=== PATIENT | male | born 1935 | race Caucasian/White ===

== ENCOUNTER → 2021-04-19 15:31 | Outpatient (CLI) | payer MEDICARE, MEDICAID ==
[2021-04-19 16:51] LABS: BILIRUBIN NEGATIVE (NEGATIVE); KETONE NEGATIVE (NEGATIVE); NITRITE NEGATIVE (NEGATIVE); UROBILINOGEN NORMAL mg/dL (< 2)
[2021-04-19 21:09] LABS: BASOPHILS 1.2 % (0-2); HEMATOCRIT 45.6 % (42.0-54.0); HEMOGLOBIN 14.8 g/dL (13.5-17.5); LYMPHOCYTES 18.1 % (15-50); MCH 29.3 pg (26.0-34.0); MCHC 32.4 g/dL (31.0-37.0); MCV 90.5 fL (80.0-100.0); MEAN PLATELET VOLUME 8.9 fL (7.4-10.4); MONOCYTES 6.3 % (2-11); NEUTROPHILS 70.4 % (40-80); RBC 5.04 10x6/uL (4.20-6.10); RDW 13.9 % (11.5-14.5); WBC 12.9 10x3/uL (4.8-10.8)
[2021-04-19 21:17] LABS: PLATELET COUNT 474 10x3/uL (130-400)
[2021-04-19 21:21] LABS: ALBUMIN 3.8 g/dL (3.4-5.0); ANION GAP 16.1 mmol/L (8-16); BILIRUBIN - TOTAL 0.98 mg/dL (0.2-1.3); CARBON DIOXIDE 27.1 mmol/L (21.0-32.0); CREATININE - SERUM 1.3 mg/dL (0.6-1.3); POTASSIUM - SERUM 4.2 mmol/L (3.5-5.1); PROTEIN - SERUM 6.8 g/dL (6.4-8.2)
== END | disposition home or self-care (01) ==
LOC: D.LABREF 15:31
PROVIDERS: ATTEND Family Medicine
DX: I50.21 Acute systolic (congestive) heart failure (principal); R41.0 Disorientation, unspecified

== ENCOUNTER → 2021-05-23 18:19 | Outpatient (CLI) | payer MEDICARE, MEDICAID ==
[2021-05-23 19:42] LABS: BILIRUBIN NEGATIVE (NEGATIVE); KETONE NEGATIVE mg/dL (< 1+); NITRITE NEGATIVE (NEGATIVE); PH 6.5 (5.0-8.0); UROBILINOGEN NORMAL mg/dL (< 2)
== END | disposition home or self-care (01) ==
LOC: D.LABREF 18:19
PROVIDERS: ATTEND Family Medicine
DX: R10.9 Unspecified abdominal pain (principal)